=== PATIENT | female | born 1975 | race Caucasian/White ===

== ENCOUNTER 2018-07-04 18:32 | Emergency (ER) | payer OTHER, MEDICAID ==
--- NOTE | 2018-07-04 18:47 | EDPHY ---
H & P Time Seen by Provider: 07/04/18 18:46 HPI/ROS: CHIEF COMPLAINT: Worsening panic attacks HISTORY OF PRESENT ILLNESS: Patient is a history of panic attacks and was started by [facility] on Zoloft in the past. She got off it this last summer or fall but then started taking it about a week ago. She has been having increasing frequency and severity panic attacks which she thinks her due to her 2 special needs kids age 911 who came home from their father's to be with her about a month ago. She is supposed to go to [place] tomorrow as her partner has family there in the begun for about 10 days. She feels worsening panic attacks reduce associated with tingling in her extremities and feeling anxious and chest tightness. She is wondering specific whether she should continue the Zoloft and whether there is something I can give her which is a short-term treatment for these panic attacks. REVIEW OF SYSTEMS: Eye: no change in vision ENT: no sore throat Cardiac: HPI Pulmonary: Not coughing Abdomen: No abdominal pain Musculoskeletal: No symptoms Skin: no rash Neuro: no headache Constitutional: no fever : No symptoms A comprehensive 10 point review of systems is otherwise negative aside from elements mentioned in the history of present illness. PAST MEDICAL HISTORY: Breast augmentation surgery, anxiety Social history: Stress from children see HPI General Appearance: Alert and conversant, cooperative. Eyes: No scleral icterus. ENT, Mouth: Normal mucous membranes. Respiratory: Normal respiratory effort, breath sounds equal, lungs are clear to auscultation. Cardiovascular: Regular rate and rhythm. Gastrointestinal: Abdomen is soft and non tender. Neurological: Alert, face symmetric, normal motor and sensory in extremities. Skin: Warm and dry, no rashes. Musculoskeletal: No peripheral edema. Psychiatric: Mildly anxious, otherwise negative Emergency Department course/MDM: Patient would like a solution short-term for severe anxiety as she is supposed to leave on a 10 [address] trip tomorrow[address] Discussed with Dr. Dawit Alvarez. Recommended continuing on SSRI at previous dosing. He thought it was reasonable to give short course oral benzodiazepines for her upcoming trip. Patient denies history in her or family of addiction. She is requesting short-term medications solution which I think is reasonable, Klonopin 0.5 mg #11 prescribed. Patient is warned this will not do anything to assist in treating her panic attacks long-term. She is also warned there is addiction potential and sedation potential with this drug. No driving while taking the medication. Smoking Status: Never smoked Constitutional: Initial Vital Signs Temperature (C) 36.8 C 07/04/18 18:38 Heart Rate 84 07/04/18 18:38 Respiratory Rate 22 H 07/04/18 18:38 Blood Pressure 131/98 H 07/04/18 18:38 O2 Sat (%) 100 07/04/18 18:38 O2 Delivery Mode Room Air Allergies/Adverse Reactions: avocado Allergy (Intermediate, Verified 07/04/18 18:40) Other-Enter Comments banana Allergy (Intermediate, Verified 07/04/18 18:40) Itching Home Medications: Medication Instructions Recorded 1 tab PO DAILY 02/11/15 Sertraline HCl [Zoloft 50mg (*)] 1 tab PO DAILY 02/11/15 Ibuprofen [Motrin (*)] 600 mg PO Q6 PRN #30 tab 04/26/15 Ofloxacin 0.3% [Ocuflox 0.3% (RX)] 2 drops EACHEYE Q1 #1 btl 07/10/15 clonazePAM [Klonopin (*)] 0.25 mg PO Q12 PRN #11 tab 07/04/18 Departure - Departure Disposition: Home, Routine, Self-Care Clinical Impression: Panic attacks Condition: Good Instructions: Panic Attack (ED) Additional Instructions: Continue your Zoloft as prescribed. Please follow-up with your primary care doctor as soon as you return home for [place]. Referrals: NONE *PRIMARY CARE P,. [Primary Care Provider] - As per Instructions ([facility]) Lynda Butts MD [Medical Doctor] - As per Instructions Prescriptions: clonazePAM [Klonopin (*)] 0.25 mg PO Q12 PRN #11 tab PRN Reason: Anxiety
[2018-07-04 20:00] VITALS: BP 138/74
== END 2018-07-04 19:59 | disposition home or self-care (01) ==
DX: F41.0 Panic disorder [episodic paroxysmal anxiety] (principal)

== ENCOUNTER 2018-10-28 14:44 | Emergency (ER) | payer MEDICAID | END 2018-10-28 16:22 | disposition home or self-care (01) ==